=== PATIENT | female | born 1975 | race Two or more races ===

== ENCOUNTER 2025-08-09 17:44 | Emergency (ER) | payer OTHER ==
[~2025-08-09] VITALS: Ht 154.9 cm; Wt 56.2 kg
[2025-08-09] MEDS ORDERED: CLORAZEPATE DIP15 MG PO (18:02)
[2025-08-09] MEDS ORDERED: PROGESTERONE200 MG PO (18:02)
[2025-08-09] MEDS ORDERED: ESTRADIOL1 EAC8 TD (18:02)
[2025-08-09] MEDS ORDERED: SYNTHROID50 MCG PO (18:03)
[2025-08-09] MEDS ORDERED: FAMOTIDINE/PF 20 MG/2 ML VIAL IV STA (19:47)
[2025-08-09] MEDS ORDERED: 0.9 % SODIUM CHLORIDE 1,000 ML IV STA (19:48)
[2025-08-09] MEDS ORDERED: FAMOTIDINE/PF 20 MG/2 ML VIAL ONE (20:13)
[2025-08-09 21:56] LABS: BASO % 0.5 % (0.1-1.2); EOS # 0.03 (0.04-0.54); EOS % 0.5 % (0.7-7.0); LYMPH # 2.01 (1.18-3.74); LYMPH % 31.9 % (19.3-53.1); MEAN PLATELET VOLUME 9.50 fl (9.4-12.4); MONO # 0.47 (0.24-0.82); MONO % 7.4 % (4.7-12.5); NEUT # 3.77 (1.56-6.13); NEUT % 59.7 % (34.0-71.1); RED CELL DISTRIBUTION WIDTH 11.9 % (11.6-14.4)
[2025-08-09 22:27] LABS: ALT/SGPT 28.0 U/L (12-78); AST/SGOT 15.0 U/L (15-37); BILIRUBIN TOTAL 0.54 mg/dL (0.3-1.2); BUN CREA RATIO 15.0 (7.0-25.0); CREATININE SERUM 0.59 mg/dL (0.55-1.02); GFR 107.46; GLOBULINA 3.7 G/DL (2.4-3.5); GLUCOSE FASTING 80.0 mg/dL (65-100); OSMOLALITY SERUM 281.0 MOSM/KG (275-295)
== END 2025-08-09 22:46 | disposition home or self-care (01) ==
LOC: ER 17:44
PROVIDERS: General Practice
DX: R10.11 Right upper quadrant pain (principal); Z88.8 Allergy status to other drugs, medicaments and biological substances